=== PATIENT | male | born 1945 | race African-American/Black ===

== ENCOUNTER → 2016-07-21 | Emergency (ER) | payer MEDICARE, OTHER ==
[2016-07-21 15:42] LABS: WBC (NOT ORDERED) (RFLEX) 0 (0-5)
[2016-07-21 16:03] LABS: ASCORBIC ACID (UR NOT ORDER) NEG (NEG); BILIRUBIN, URINE NEGATIVE (NEG); ER URINALYSIS TAT 0 Hrs 21 Mins; KETONE, URINE TRACE MG/DL (NEG); LEUKOCYTE ESTERASE(NOT OR NEG (NEG); NITRITE (URINE) NEG (NEG)
[2016-07-21 16:08] LABS: BASOPHILS 0.6 %; BASOPHILS ABSOLUTE 0.03 10/3/uL (0.0-0.16); EOSINOPHILS 4.3 %; ER CBC TAT 0 Hrs 07 Mins; HEMATOCRIT 37.8 % (40.0-51.0); HEMOGLOBIN 12.7 g/dL (13.6-17.8); LYMPHOCYTES 48.1 %; LYMPHOCYTES ABSOLUTE 2.23 10/3/uL (0.67-4.30); MANUAL DIFF NO %; MEAN CORPUS HGB CONC 33.6 g/dL (32.0-36.0); MEAN CORPUSCULAR HEMOGLOB 30.2 pg (26.0-34.0); MEAN PLATELET VOLUME 8.8 fL (9.2-13.0); MONOCYTES 8.2 %; MONOCYTES ABSOLUTE 0.38 10/3/uL (0.21-1.20); NEUTROPHILS 38.8 %; PLATELET COUNT 172 10/3/uL (150-400); RBC DISTRIBUTION WIDTH 14.6 % (12.0-16.0); WHITE BLOOD CELLS 4.6 10/3/uL (4.5-10.5)
[2016-07-21 16:15] LABS: PROTIME (NOT ORD) 13.4 SEC (12.0-14.5)
[2016-07-21 16:21] LABS: A/G RATIO 0.9 (0.7-1.9); ALBUMIN 3.5 G/DL (3.5-5.0); ALKALINE PHOSPHATASE 70 U/L (45-117); BUN (BLOOD UREA NITROGEN) 15 MG/DL (6-23); CALCIUM, SERUM 8.4 MG/DL (8.5-10.4); CHLORIDE, SERUM 108 MMOL/L (96-112); CO2 (CARBON DIOXIDE) 30 MMOL/L (24-34); CREATININE 1.15 MG/DL (0.70-1.30); GFR AFRICAN AMERICAN 73 ML/MIN (>=60); GFR NON AFRICAN AMERICAN 63 ML/MIN (>=60); GLOBULIN 3.8 G/DL (2.5-4.1); GLUCOSE, SERUM 82 MG/DL (60-99); POTASSIUM, SERUM 4.4 MMOL/L (3.5-5.3); SGOT(AST) 11 U/L (5-40); SGPT(ALT) 18 U/L (5-65); SODIUM, SERUM 142 MMOL/L (135-148); TOTAL BILIRUBIN 0.5 MG/DL (0-1.2); TOTAL PROTEIN 7.3 G/DL (6.0-8.5)
== END | disposition home or self-care (01) ==
LOC: ER 14:21
PROVIDERS: Hospitalist
DX: R31.9 Hematuria, unspecified (principal)
CPT/HCPCS: 80053; 81001; 85025; 85610; 85730; 87086; 99283